=== PATIENT | male | born 1985 | race Two or more races ===

== ENCOUNTER 2017-10-19 21:29 | Emergency (ER) | payer MEDICAID ==
[~2017-10-19] VITALS: Ht 167.6 cm; Wt 65.8 kg
[2017-10-19 21:31] VITALS: BP 130/86
[2017-10-20] MEDS ORDERED: LIDOCAINE HCL/PF 1% 30 ML SDV ONE (01:04)
== END 2017-10-20 02:28 | disposition home or self-care (01) ==
LOC: ER 21:32
DX: S61.412A Laceration without foreign body of left hand, initial encounter (principal); W20.8XXA Other cause of strike by thrown, projected or falling object, initial encounter; Y93.89 Activity, other specified; Y92.89 Other specified places as the place of occurrence of the external cause; Y99.8 Other external cause status
CPT/HCPCS: 73130-TC; A4606; A6402; J3490; Z7610